=== PATIENT | female | born 1995 | race Caucasian/White ===

== ENCOUNTER 2017-02-25 18:11 | Emergency (ER) | payer MEDICAID ==
--- NOTE | 2017-02-25 20:42 | Emergency Department Report ---
ED Rash HPI - HPI Chief Complaint: Animal Bite Stated Complaint: FLEA BITES TO FEET Time Seen by Provider: 02/25/17 20:18 Duration: 1 month Location: Lower Extremities Suspected Cause: Insect Rash Symptoms: Yes Itching, No Facial Swelling, No Tongue/Oral Swelling, No Breathing Difficulties, No Choking Sensation, No Wheezing/Dyspnea, No Peeling, No Blistering, No Fever, No Lightheaded, No Malaise, No Myalgias Severity: mild Other History: 21-year-old female presents with complaint of itchy rash and bug bites to bilateral feet and arms. Patient and patient's was at bedside state they have had an issue with fleas possibly bedbugs in their home over the last month. Patient denies any fever or chills, primarily complaining of itching at sites of bites. Patient is unsure what type of bug it is. Denies any recent travel. States that they have hired an clutch inspector to come to their home over the last month and treat a possible infestation. ED Review of Systems ROS: Stated complaint: FLEA BITES TO FEET Other details as noted in HPI Constitutional: denies: chills, fever Eyes: denies: eye pain, eye discharge, vision change ENT: denies: ear pain, throat pain Respiratory: denies: cough, shortness of breath, wheezing Cardiovascular: denies: chest pain, palpitations Endocrine: no symptoms reported Gastrointestinal: denies: abdominal pain, nausea, diarrhea Genitourinary: denies: urgency, dysuria, discharge Musculoskeletal: denies: back pain, joint swelling, arthralgia Skin: as per HPI (bug bites on arms and legs). denies: rash, lesions Neurological: denies: headache, weakness, paresthesias Psychiatric: denies: anxiety, depression Hematological/Lymphatic: denies: easy bleeding, easy bruising ED Past Medical Hx - Past Medical History Previous Medical History?: No - Surgical History Additional Surgical History: TONSILLECTOMY. X 2 - Social History Smoking Status: Never Smoker Substance Use Type: None - Medications Home Medications: Home Medications Medication Instructions Recorded Confirmed Last Taken Type Hydrocortisone 1% [Hydrocortisone 1 applicatio TP TID PRN #1 tube 02/25/17 Unknown Rx 1% CREAM] Hydroxyzine HCl 25 mg PO Q12H PRN #20 tablet 05/27/17 Unknown Rx Ibuprofen [Motrin] 600 mg PO Q8H PRN #20 tablet 02/25/17 Unknown Rx Permethrin [Lice Cream Rinse] 120 ml TP QDAY #1 liquid 02/25/17 Unknown Rx Rash Exam - Exam General: Vital signs noted. No distress. Alert and acting appropriately. HEENT: No Periorbital Edema, No Conjuctival Injection, No Chemosis, No Perioral Edema, No Tongue Edema, No Uvular Edema, No Compromised Airway, No Drooling Lungs: Yes Good Air Exchange (Normal Breath Sounds), No Wheezes, No Ronchi, No Stridor, No Cough, No Labored Respirations, No Retractions, No Use of Accessory Muscles, No Other Abnormal Lung Sounds Heart: Yes Regular, No Murmur Skin: Yes Excoriations, Yes Tenderness (tenderness at areas of bug bites no visible cellulitis), Yes Other (small round red bug bites on top of bilateral feet and forearms), No Urticarial Rash, No Maculopapular Rash, No Morbilliform rash, No Bulla(e), No Weeping, No Erythema, No Edema, No Encrustations Other: Positive: Abdomen Normal, Neurologic Normal, Musculoskeletal Normal ED Course Vital Signs 02/25/17 18:22 Temperature 98.3 F Pulse Rate 93 H Respiratory 17 Rate Blood Pressure 117/72 O2 Sat by Pulse 99 Oximetry ED Medical Decision Making - Medical Decision Making A/P: Possible bedbug versus flea bites lower extremity 1-hydrocortisone cream to areas of bites 2-hydroxyzine when necessary 3-permetherin cream treatment 4-no clinical signs of cellulitis anywhere near bug bites 5- I educated patient on bedbugs and flea bites and recommended that they rehire an clutch inspector and check their clothing as well as bedding Critical care attestation.: If time is entered above; I have spent that time in minutes in the direct care of this critically ill patient, excluding procedure time. ED Disposition Clinical Impression: Bug bites Qualifiers: Encounter type: initial encounter Qualified Code(s): W57.XXXA - Bitten or stung by nonvenomous insect and other nonvenomous arthropods, initial encounter Disposition: DISCHARGED TO HOME OR SELFCARE Is pt being admited?: No Does the pt Need Aspirin: No Condition: Stable Instructions: Insect Bite or Sting (ED) Prescriptions: Hydrocortisone 1% [Hydrocortisone 1% CREAM] 1 applicatio TP TID PRN #1 tube PRN Reason: Itching Hydroxyzine HCl 25 mg PO Q12H PRN #20 tablet PRN Reason: Itching Ibuprofen [Motrin] 600 mg PO Q8H PRN #20 tablet PRN Reason: Pain Permethrin [Lice Cream Rinse] 120 ml TP QDAY #1 liquid Referrals: ISAIAH VILLAGOMEZ MD [Primary Care Provider] - 3-5 Days Time of Disposition: 20:49 Print Language: BURMESE
[2017-02-25 23:30] VITALS: BP 118/74
== END 2017-02-25 21:00 | disposition home or self-care (01) ==
LOC: ED 18:11
DX: S40.862A Insect bite (nonvenomous) of left upper arm, initial encounter (principal); S40.861A Insect bite (nonvenomous) of right upper arm, initial encounter; S90.862A Insect bite (nonvenomous), left foot, initial encounter; S90.861A Insect bite (nonvenomous), right foot, initial encounter; W57.XXXA Bitten or stung by nonvenomous insect and other nonvenomous arthropods, initial encounter; Y93.89 Activity, other specified; Y99.8 Other external cause status; Y92.89 Other specified places as the place of occurrence of the external cause
CPT/HCPCS: 99282